=== PATIENT | female | born 1975 ===

== ENCOUNTER 2022-12-31 14:01 | Inpatient (IN) ==
[2022-12-31] MEDS ORDERED: clonazePAM 0.5 MG TABLET PO PRN (18:22)
[2022-12-31] MEDS ORDERED: SENNOSIDES 1 TABLET PO PRN (18:22)
[2022-12-31] MEDS ORDERED: ONDANSETRON 4 MG/2 ML VIAL IV PRN (18:22)
[2022-12-31] MEDS ORDERED: LACTULOSE 20 GM/30 ML ORAL.SOL PO PRN (18:22)
[2022-12-31] MEDS ORDERED: ACETAMINOPHEN 325 MG TABLET PO PRN (18:47)
[2022-12-31 19:03] LABS: Basophils # (Auto) 0.03 K/mcL (0.00-0.30); Basophils % (Auto) 0.3 % (0.0-2.0); Eosinophils # (Auto) 0.01 K/mcL (0.00-0.70); Eosinophils % (Auto) 0.1 % (0.0-7.0); Hematocrit 50.3 % (34.1-44.9); Hemoglobin 15.8 g/dL (11.2-15.7); Lymphocytes # (Auto) 0.93 K/mcL (1.50-4.80); Lymphocytes % (Auto) 7.9 % (15.5-49.0); Mean Cell Volume 108.2 fL (80.0-100.0); Mean Corpuscular HGB Conc 31.4 g/dL (31.0-36.0); Mean Platelet Volume 8.8 fL (8.8-12.5); Monocytes # (Auto) 0.57 K/mcL (0.10-0.90); Monocytes % (Auto) 4.8 % (1.0-12.0); Neutrophils % (Auto) 86.4 % (38.0-78.0); Platelet Count 214 K/mcL (140-440); RBC 4.65 M/mcL (3.59-5.38); Red Cell Distribution Width 15.9 % (11.5-14.5); WBC 11.8 K/mcL (4.5-11.0)
[2022-12-31 19:12] LABS: Prothrombin Time 13.5 sec (11.9-14.5)
[2022-12-31] MEDS: 0.9 % SODIUM CHLORIDE 10 ML SYRINGE IV SCH (19:20)
[2022-12-31 19:34] LABS: ALT/SGPT 8 U/L (<40); AST/SGOT 12 U/L (<32); Albumin 3.2 gm/dL (3.2-5.2); Albumin/Globulin Ratio 1.2 (1.0-2.3); Alkaline Phosphatase 49 U/L (39-117); Bilirubin,Direct 0.4 mg/dL (<0.3); Bilirubin,Total 0.6 mg/dL (0.1-1.0); Blood Urea Nitrogen 11 mg/dL (6-20); Calcium 9.2 mg/dL (8.6-10.4); Carbon Dioxide 34 mmol/L (22-30); Chloride 98 mmol/L (96-108); Globulin 2.7 gm/dL (2.2-3.7); Glomerular Filtration Rate 68; Glucose 135 mg/dL (70-105); Lactate Dehydrogenase 163 U/L (135-225); Phosphorous 3.5 mg/dL (2.5-4.5); Thyroid Stimulating Hormone 0.09 uIU/mL (0.27-5.01); Triglycerides 95 mg/dL (<150); Uric Acid 7.2 mg/dL (2.5-8.0)
[2022-12-31] MEDS: DOCUSATE SODIUM 100 MG CAPSULE PO SCH (22:10)
[2022-12-31] MEDS: PRAZOSIN 1 MG CAPSULE PO SCH (22:10)
[2022-12-31] MEDS: DIVALPROEX SODIUM ER 250 MG TABLET PO SCH (22:11)
[2022-12-31] MEDS: TOLTERODINE 2 MG CAP.XL.24H PO SCH (22:12)
[2022-12-31] MEDS: FLUTICASONE PROPIONATE SPRAY.NAS NS SCH (22:12)
[2022-12-31] MEDS: SENNOSIDES 1 TABLET PO SCH (22:12)
[2023-01-01] MEDS: IPRATROPIUM/ALBUTEROL 3 ML AMPUL.NEB NEB PRN ×4 (00:26→18:55)
[2023-01-01] MEDS: 0.9 % SODIUM CHLORIDE 10 ML SYRINGE IV SCH ×3 (05:38→20:11)
[2023-01-01] MEDS: OMEPRAZOLE 20 MG CAPSULE PO SCH (07:06)
[2023-01-01] MEDS ORDERED: LEVOTHYROXINE 150 MCG TABLET PO SCH (07:30)
[2023-01-01] MEDS ORDERED: FUROSEMIDE 40 MG TABLET PO SCH (09:00)
[2023-01-01] MEDS: VITAMIN D3 25 MCG TABLET PO SCH (09:17)
[2023-01-01] MEDS: FENOFIBRATE 43 MG CAPSULE PO SCH (09:17)
[2023-01-01] MEDS: SENNOSIDES 1 TABLET PO SCH ×2 (09:17→21:44)
[2023-01-01] MEDS: POTASSIUM CHLORIDE 10 MEQ TABLET PO SCH (09:17)
[2023-01-01] MEDS: GABAPENTIN 100 MG CAPSULE PO SCH (09:17)
[2023-01-01] MEDS: DIVALPROEX SODIUM ER 250 MG TABLET PO SCH ×2 (09:17→21:40)
[2023-01-01] MEDS: TOLTERODINE 2 MG CAP.XL.24H PO SCH ×2 (09:18→21:40)
[2023-01-01] MEDS: Umeclidinium-Vilanterol [Anoro Ellipta] 62.5-25 INH SCH (09:18)
[2023-01-01] MEDS: FLUTICASONE PROPIONATE SPRAY.NAS NS SCH ×2 (09:18→21:45)
[2023-01-01] MEDS: DOCUSATE SODIUM 100 MG CAPSULE PO SCH ×2 (09:18→21:39)
[2023-01-01] MEDS: PRAZOSIN 1 MG CAPSULE PO SCH (21:39)
[2023-01-02] MEDS: 0.9 % SODIUM CHLORIDE 10 ML SYRINGE IV SCH ×3 (05:41→21:09)
[2023-01-02] MEDS: OMEPRAZOLE 20 MG CAPSULE PO SCH (06:43)
[2023-01-02] MEDS: LEVOTHYROXINE SODIUM 112 MCG TABLET PO SCH (06:43)
[2023-01-02] MEDS: IPRATROPIUM/ALBUTEROL 3 ML AMPUL.NEB NEB PRN (06:56)
[2023-01-02] MEDS: VITAMIN D3 25 MCG TABLET PO SCH (08:55)
[2023-01-02] MEDS: DIVALPROEX SODIUM ER 250 MG TABLET PO SCH ×2 (08:55→21:07)
[2023-01-02] MEDS: FUROSEMIDE 40 MG/4 ML VIAL IV SCH ×2 (08:55→16:08)
[2023-01-02] MEDS: DOCUSATE SODIUM 100 MG CAPSULE PO SCH ×2 (08:55→21:07)
[2023-01-02] MEDS: GABAPENTIN 100 MG CAPSULE PO SCH (08:55)
[2023-01-02] MEDS: POTASSIUM CHLORIDE 10 MEQ TABLET PO SCH (08:56)
[2023-01-02] MEDS: FENOFIBRATE 43 MG CAPSULE PO SCH (08:56)
[2023-01-02] MEDS: FLUTICASONE PROPIONATE SPRAY.NAS NS SCH ×2 (08:56→20:16)
[2023-01-02] MEDS: Umeclidinium-Vilanterol [Anoro Ellipta] 62.5-25 INH SCH (08:56)
[2023-01-02] MEDS: POLYETHYLENE GLYCOL 3350 17 GM PACKET PO SCH ×2 (08:58→21:08)
[2023-01-02] MEDS: TOLTERODINE 2 MG CAP.XL.24H PO SCH ×2 (09:00→21:08)
[2023-01-02] MEDS: SENNOSIDES 1 TABLET PO SCH ×2 (09:03→21:09)
[2023-01-02 09:10] LABS: Basophils # (Auto) 0.02 K/mcL (0.00-0.30); Basophils % (Auto) 0.2 % (0.0-2.0); Eosinophils # (Auto) 0.22 K/mcL (0.00-0.70); Eosinophils % (Auto) 2.6 % (0.0-7.0); Hematocrit 49.1 % (34.1-44.9); Hemoglobin 15.4 g/dL (11.2-15.7); Lymphocytes % (Auto) 16.7 % (15.5-49.0); Mean Cell Volume 108.6 fL (80.0-100.0); Mean Corpuscular HGB Conc 31.4 g/dL (31.0-36.0); Mean Platelet Volume 10.6 fL (8.8-12.5); Monocytes # (Auto) 0.41 K/mcL (0.10-0.90); Monocytes % (Auto) 4.9 % (1.0-12.0); Neutrophils % (Auto) 75.1 % (38.0-78.0); Platelet Count 243 K/mcL (140-440); RBC 4.52 M/mcL (3.59-5.38); Red Cell Distribution Width 15.9 % (11.5-14.5); WBC 8.4 K/mcL (4.5-11.0)
[2023-01-02 12:33] LABS: ALT/SGPT 6 U/L (<40); AST/SGOT 11 U/L (<32); Albumin 3.1 gm/dL (3.2-5.2); Albumin/Globulin Ratio 1.1 (1.0-2.3); Alkaline Phosphatase 49 U/L (39-117); Bilirubin,Direct 0.2 mg/dL (<0.3); Bilirubin,Total 0.5 mg/dL (0.1-1.0); Blood Urea Nitrogen 8 mg/dL (6-20); Calcium 9.2 mg/dL (8.6-10.4); Carbon Dioxide 33 mmol/L (22-30); Chloride 99 mmol/L (96-108); Globulin 2.7 gm/dL (2.2-3.7); Glomerular Filtration Rate 77; Glucose 107 mg/dL (70-105); Lactate Dehydrogenase 184 U/L (135-225); Phosphorous 2.7 mg/dL (2.5-4.5); Triglycerides 105 mg/dL (<150); Uric Acid 5.7 mg/dL (2.5-8.0)
[2023-01-02] MEDS ORDERED: POTASSIUM CHLORIDE 20 MEQ TABLET PO ONE (13:42)
[2023-01-02] MEDS: PRAZOSIN 1 MG CAPSULE PO SCH (21:08)
[2023-01-03] MEDS: 0.9 % SODIUM CHLORIDE 10 ML SYRINGE IV SCH (06:00)
[2023-01-03 06:50] LABS: ALT/SGPT < 5 U/L (<40); AST/SGOT 9 U/L (<32); Albumin 2.6 gm/dL (3.2-5.2); Albumin/Globulin Ratio 0.9 (1.0-2.3); Alkaline Phosphatase 43 U/L (39-117); Bilirubin,Direct 0.3 mg/dL (<0.3); Bilirubin,Total 0.6 mg/dL (0.1-1.0); Blood Urea Nitrogen 11 mg/dL (6-20); Carbon Dioxide 31 mmol/L (22-30); Chloride 99 mmol/L (96-108); Globulin 2.9 gm/dL (2.2-3.7); Glomerular Filtration Rate 89; Glucose 73 mg/dL (70-105); Lactate Dehydrogenase 145 U/L (135-225); Triglycerides 118 mg/dL (<150); Uric Acid 6.3 mg/dL (2.5-8.0)
[2023-01-03] MEDS: IPRATROPIUM/ALBUTEROL 3 ML AMPUL.NEB NEB PRN (08:43)
[2023-01-03] MEDS ORDERED: FUROSEMIDE 40 MG TABLET PO SCH (09:00)
[2023-01-03] MEDS ORDERED: ASPIRIN 81 MG TAB.CHEW PO SCH (09:00)
[2023-01-03] MEDS: SENNOSIDES 1 TABLET PO SCH (09:21)
[2023-01-03] MEDS: POLYETHYLENE GLYCOL 3350 17 GM PACKET PO SCH (09:21)
[2023-01-03] MEDS: DOCUSATE SODIUM 100 MG CAPSULE PO SCH (09:30)
[2023-01-03] MEDS: TOLTERODINE 2 MG CAP.XL.24H PO SCH (09:30)
[2023-01-03] MEDS: Umeclidinium-Vilanterol [Anoro Ellipta] 62.5-25 INH SCH (09:30)
[2023-01-03] MEDS: LEVOTHYROXINE SODIUM 112 MCG TABLET PO SCH (09:31)
[2023-01-03] MEDS: GABAPENTIN 100 MG CAPSULE PO SCH (09:31)
[2023-01-03] MEDS: FENOFIBRATE 43 MG CAPSULE PO SCH (09:31)
[2023-01-03] MEDS: DIVALPROEX SODIUM ER 250 MG TABLET PO SCH (09:31)
[2023-01-03] MEDS: VITAMIN D3 25 MCG TABLET PO SCH (09:31)
[2023-01-03] MEDS: POTASSIUM CHLORIDE 10 MEQ TABLET PO SCH (09:31)
[2023-01-03] MEDS: FLUTICASONE PROPIONATE SPRAY.NAS NS SCH (09:32)
[2023-01-03] MEDS: OMEPRAZOLE 20 MG CAPSULE PO SCH (09:32)
[2023-01-13 16:16] LABS: DNA AB(DS) Crithidia, IFA POSITIVE (NEGATIVE); Rhuematoid Factor <14 IU/mL (<14); SM Antibody <1.0 NEG AI (<1.0 NEGATIVE); SM/RNP Antibody <1.0 NEG AI (<1.0 NEGATIVE); SS-A <1.0 NEG AI (<1.0 NEGATIVE); SS-B <1.0 NEG AI (<1.0 NEGATIVE); Scl-70 <1.0 NEG AI (<1.0 NEGATIVE)
== END 2023-01-03 13:30 | disposition home or self-care (01) | DRG 200 ==
LOC: ED 14:01 → ICU 18:00
PROVIDERS: ADMIT Internal Medicine; ATTEND Internal Medicine